=== PATIENT | male | born 1970 | race Caucasian/White ===

== ENCOUNTER 2017-05-30 16:02 | Emergency (ER) | payer OTHER ==
[~2017-05-30] VITALS: Ht 182.9 cm; Wt 101.9 kg
[2017-05-30 20:55] VITALS: BP 142/98
[2017-05-30] MEDS ORDERED: ENDOCET 5-3251 EACH PO (20:56)
[2017-05-30] MEDS ORDERED: METAXALONE800 MG PO (20:56)
== END 2017-05-30 20:59 | disposition home or self-care (01) ==
LOC: RME 16:02 → EME 16:02 → RME 20:59
DX: R51 Headache (principal); S16.1XXA Strain of muscle, fascia and tendon at neck level, initial encounter; M50.322 Other cervical disc degeneration at C5-C6 level; V49.40XA Driver injured in collision with unspecified motor vehicles in traffic accident, initial encounter; Z87.891 Personal history of nicotine dependence
CPT/HCPCS: 72040; 99281; 99284

== ENCOUNTER 2018-03-15 10:12 | Observation (INO) | payer OTHER ==
[~2018-03-15] VITALS: Ht 182.9 cm; Wt 104.9 kg
[~2018-03-15 10:12] MED LIST: ENDOCET 5-3251 EACH PO; METAXALONE800 MG PO
[2018-03-15 10:57] LABS: HEMATOCRIT 43.7 % (38.0-50.0); HEMOGLOBIN 15.4 G/DL (12.5-16.6); MCHC 35.2 G/DL (30.0-36.0); MCV 87.9 FL (86-99); PLATELET COUNT 197 K/uL (156-360); RBC DIS.WIDTH-SD 41.4 % (39-53); RED BLOOD COUNT 4.97 M/uL (4.00-5.50); WHITE BLOOD COUNT 10.9 K/uL (4.1-10.2)
[2018-03-15 11:06] LABS: ALBUMIN 4.4 g/dL (3.2-4.8)
[2018-03-15 11:07] LABS: CHLORIDE 103 mEq/L (99-109); SODIUM 140 mEq/L (136-147)
[2018-03-15 11:09] LABS: GLUCOSE 102 mg/dL (70-99); TOTAL PROTEIN 7.7 g/dL (6.4-8.3)
[2018-03-15 11:11] LABS: TOTAL BILIRUBIN 0.9 mg/dL (0.0-1.0)
[2018-03-15 11:12] LABS: ALKALINE PHOSPHATASE 52 IU/L (3-129)
[2018-03-15 11:13] LABS: CREATININE 1.1 mg/dL (0.6-1.3); GFR ESTIMATE (CALCULATED) > 59 mL/min/ (58.99-99999)
[2018-03-15 11:14] LABS: AST (GOT) 20 IU/L (2-34); UREA NITROGEN (BUN) 15 mg/dL (9-23)
[2018-03-15 11:16] LABS: ALT (GPT) 25 IU/L (3-49)
[2018-03-15 12:33] LABS: APPEARANCE CLEAR ((CLEAR)); BILIRUBIN NEGATIVE; BLOOD SMALL; COLOR STRAW ((YELLOW)); GLUCOSE (STRIP) NEGATIVE; KETONES NEGATIVE; LEUKOCYTES NEGATIVE; NITRITE NEGATIVE; PROTEIN (STRIP) NEGATIVE; SPECIFIC GRAVITY 1.018 (1.000-1.030); UROBILINOGEN 0.2 MG/DL (0.2-1.0)
[2018-03-15 12:37] LABS: BACTERIA NONE SEEN /HPF; EPITHELIAL CELLS RARE /HPF; MUCUS NONE SEEN /LPF; RED BLOOD CELLS 0-5 /HPF (0-5); UCUL ADDED? NO; WHITE BLOOD CELLS 0-5 /HPF (0-5)
[2018-03-15 20:00] VITALS: BP 141/75
[2018-03-16 00:21] VITALS: BP 141/78
[2018-03-16 04:23] VITALS: BP 106/64
[2018-03-16 06:22] LABS: HEMATOCRIT 41.4 % (38.0-50.0); HEMOGLOBIN 14.1 G/DL (12.5-16.6); MCH 30.1 PG (29.0-34.0); MCHC 34.1 G/DL (30.0-36.0); MCV 88.5 FL (86-99); PLATELET COUNT 186 K/uL (156-360); RBC DIS.WIDTH-CV 13.1 % (11.8-14.6); RBC DIS.WIDTH-SD 42.5 % (39-53); RED BLOOD COUNT 4.68 M/uL (4.00-5.50); WHITE BLOOD COUNT 8.2 K/uL (4.1-10.2)
[2018-03-16 07:53] VITALS: BP 130/87
[2018-03-16 11:12] VITALS: BP 155/80
[2018-03-16] MEDS ORDERED: TORADOL10 MG PO (15:17)
[2018-03-16] MEDS ORDERED: DOCUSATE SODIU100 MG PO (15:17)
[2018-03-16] MEDS ORDERED: POLYETHYLENE GL17 GM PO (15:17)
[2018-03-16 15:30] VITALS: BP 129/73
== END 2018-03-16 16:10 | disposition home or self-care (01) ==
LOC: EME 10:12 → EDOF 13:35 → 4SOUTH 13:35 → EDOF 13:35 → ENRESERV 13:38 → 4SOUTH 14:38
PROVIDERS: Internal Medicine
DX: K63.89 Other specified diseases of intestine (principal); Q43.8 Other specified congenital malformations of intestine; R10.32 Left lower quadrant pain; D72.829 Elevated white blood cell count, unspecified; M19.90 Unspecified osteoarthritis, unspecified site; M51.36 Other intervertebral disc degeneration, lumbar region; Z87.891 Personal history of nicotine dependence
CPT/HCPCS: 74177; 80053; 81003; 85027; 99281; 99285; G0378; J0744; J1885; J3010; J7120; S0030